=== PATIENT | male | born 1995 | race Caucasian/White ===

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

== ENCOUNTER 2017-03-07 17:39 | Emergency (ER) | payer BC ==
[~2017-03-07] VITALS: Ht 182.9 cm; Wt 66.2 kg
[~2017-03-07 17:39] MED LIST changes: +OXYC1TAB3 PO
[2017-03-07 17:58] VITALS: TEMP 38; Ht 182.9 cm; Wt 66.2 kg
[2017-03-07] MEDS ORDERED: ACETAMINOPHEN 500 MG TAB PO STA (19:01)
[2017-03-07] MEDS ORDERED: KETOROLAC TROMETHAMINE 30 MG/ML VIAL IV STA (19:01)
[2017-03-07 19:34] LABS: BASO % 0.2 %; BASO ABS # 0.01 K/uL (0-0.2); EOS % 0.2 %; EOS ABS # 0.01 K/uL (0-0.5); HEMATOCRIT 39.1 % (42-52); HEMOGLOBIN 13.8 g/dL (14.0-18.0); IG# 0.01 K/uL (0.00-0.02); LYMPH % 11.6 %; LYMPH ABS # 0.62 K/uL (1.2-3.4); MEAN CELL VOLUME 84.6 fL (80-100); MEAN CORPUSCULAR HEMOGLOBIN 29.9 pg (25-34); MEAN CORPUSCULAR HGB CONC 35.3 g/dl (32-36); MEAN PLATELET VOLUME 9.4 fL (7.4-10.4); MONO % 20.6 %; NEUT % 67.2 %; NEUT ABS # 3.59 K/uL (1.4-6.5); PLATELET COUNT 136 K/uL (130-400); RED CELL DISTRIBUTION WIDTH CV 13.3 % (11.5-14.5); RED CELL DISTRIBUTION WIDTH SD 40.7 fL (36.4-46.3); WHITE BLOOD COUNT 5.34 K/uL (4.8-10.8)
[2017-03-07 19:44] LABS: CALCIUM 9.1 mg/dl (8.5-10.1); POTASSIUM 3.5 mmol/L (3.5-5.1)
--- NOTE | 2017-03-07 19:47 | DIAGNOSTIC IMAGING REPORT ---
CHEST 2 VIEWS ROUTINE HISTORY: fever, cough COMPARISON: Chest 03/1716. FINDINGS: The lungs are clear. Cardiac silhouette is normal in size. No pleural effusions. No pneumothorax. IMPRESSION: No acute process. Electronically signed by: Chris Rojas M.D. 03/07/2017 7:46 PM Dictated Date/Time: 03/07/2017 7:44 PM
--- NOTE | 2017-03-07 19:53 | EMERGENCY ROOM VISIT NOTE ---
History Report prepared by Boyd: Christiano Leblanc Under the Supervision of: Froilan PadronO. First contact with patient: 18:42 Chief Complaint: FLU LIKE SX Stated Complaint: HIGH FEVER, NAUEA, CHEST PAIN, COUGH History of Present Illness The patient is a 21 year old male who presents to the Emergency Room with complaints of worsening flu symptoms for the past two days. The patient states that it started with a cough, and then last night into today he has been having body aches, chills, and fevers up to 102. He additionally states that he has some nausea, a dry cough, chest pain while coughing, and a sore throat. The patient denies any vomiting, shortness of breath, ear pain, runny nose, rashes, sores, difficulty urinating or defecating, diarrhea, and any abdominal pain. He states that he is unsure if he got the flu shot this year, and he states that he has not had any known sick contacts. He states that he does not smoke, and last year he had pneumonia. H states that he has been drinking fluids, and he states that he has not been eating very much. He has no other past medical history, and he denies any family history. The patient states that he has been taking Tylenol, though it has not been able to keep his fever down. Source of History: patient Onset: two days ago Position: other (global) Quality: other (flu like symptoms) Timing: worsening Associated Symptoms: + fevers, + chills, + sorethroat, + cough, + chest pain , + nausea, No SOB, No vomiting, No abdominal pain, No diarrhea, No rash Note: Associated symptoms: Body aches Review of Systems See HPI for pertinent positives & negatives. A total of 10 systems reviewed and were otherwise negative. Past Medical & Surgical Medical Problems: (1) Bronchitis Surgical Problems: (1) History of tonsillectomy Family History No significant family history Social History Smoking Status: Never Smoker Alcohol Use: occasionally Drug Use: none Marital Status: single Housing Status: lives with roommate Occupation Status: [employer] student Current/Historical Medications Scheduled PRN Sxozfnylxzwef-Fc-Pn W/ Apap (Tylenol Cold & Flu Severe), 2 TABS PO Q6 PRN for COLD SYMPTOMS Allergies Coded Allergies: Amoxicillin (Verified Allergy, Intermediate, HIVES-HAPPENED A BABY, ) Physical Exam Vital Signs Date Time Temp Pulse Resp B/P (MAP) Pulse Ox O2 Delivery O2 Flow Rate FiO2 03/07/17 20:51 79 18 107/62 98 03/07/17 19:34 95 16 119/71 97 Room Air 03/07/17 17:58 38.0 113 18 120/71 96 Room Air Physical Exam GENERAL: alert, mildly ill appearing, well nourished, no distress, non-toxic EYE EXAM: normal conjunctiva, PERRL and EOM's grossly intact OROPHARYNX: no exudate, no erythema, lips, buccal mucosa, and tongue normal and mucous membranes are moist NECK: supple, no nuchal rigidity, no adenopathy, non-tender LUNGS: Clear to auscultation. Normal chest wall mechanics HEART: no murmurs, S1 normal and S2 normal ABDOMEN: abdomen soft, non-tender, normo-active bowel sounds, no masses, no rebound or guarding. BACK: Back is symmetrical on inspection and there is no deformity, no midline tenderness, no CVA tenderness. SKIN: no rashes and no bruising UPPER EXTREMITIES: upper extremities are grossly normal. LOWER EXTREMITIES: No pitting edema. NEURO EXAM: Normal sensorium, cranial nerves II-XII grossly intact, normal speech, no gross weakness of arms, no gross weakness of legs. Gross sensation intact. Medical Decision & Procedures ER Provider Diagnostic Interpretation: Radiology results have been interpreted by the radiologist and reviewed by me. CHEST 2 VIEWS ROUTINE HISTORY: fever, cough COMPARISON: Chest 03/1716. FINDINGS: The lungs are clear. Cardiac silhouette is normal in size. No pleural effusions. No pneumothorax. IMPRESSION: No acute process. Electronically signed by: Chris Rojas M.D. 03/07/2017 7:46 PM Dictated Date/Time: 03/07/2017 7:44 PM Laboratory Results 03/07/17 19:10 Red Blood Count 4.62, Mean Corpuscular Volume 84.6, Mean Corpuscular Hemoglobin 29.9, Mean Corpuscular Hemoglobin Concent 35.3, Mean Platelet Volume 9.4, Neutrophils (%) (Auto) 67.2, Lymphocytes (%) (Auto) 11.6, Monocytes (%) (Auto) 20.6, Eosinophils (%) (Auto) 0.2, Basophils (%) (Auto) 0.2, Neutrophils # (Auto ) 3.59, Lymphocytes # (Auto) 0.62, Monocytes # (Auto) 1.10, Eosinophils # (Auto ) 0.01, Basophils # (Auto) 0.01 03/07/17 19:10 Test 03/07/17 19:10 White Blood Count 5.34 K/uL (4.8-10.8) Red Blood Count 4.62 M/uL (4.7-6.1) Hemoglobin 13.8 g/dL (14.0-18.0) Hematocrit 39.1 % (42-52) Mean Corpuscular Volume 84.6 fL (80-100) Mean Corpuscular Hemoglobin 29.9 pg (25-34) Mean Corpuscular Hemoglobin Concent 35.3 g/dl (32-36) Platelet Count 136 K/uL (130-400) Mean Platelet Volume 9.4 fL (7.4-10.4) Neutrophils (%) (Auto) 67.2 % Lymphocytes (%) (Auto) 11.6 % Monocytes (%) (Auto) 20.6 % Eosinophils (%) (Auto) 0.2 % Basophils (%) (Auto) 0.2 % Neutrophils # (Auto) 3.59 K/uL (1.4-6.5) Lymphocytes # (Auto) 0.62 K/uL (1.2-3.4) Monocytes # (Auto) 1.10 K/uL (0.11-0.59) Eosinophils # (Auto) 0.01 K/uL (0-0.5) Basophils # (Auto) 0.01 K/uL (0-0.2) RDW Standard Deviation 40.7 fL (36.4-46.3) RDW Coefficient of Variation 13.3 % (11.5-14.5) Immature Granulocyte % (Auto) 0.2 % Immature Granulocyte # (Auto) 0.01 K/uL (0.00-0.02) Anion Gap 8.0 mmol/L (3-11) Est Creatinine Clear Calc Drug Dose 111.3 ml/min Estimated GFR () 125.9 Estimated GFR (Non- 108.6 BUN/Creatinine Ratio 8.9 (10-20) Calcium Level 9.1 mg/dl (8.5-10.1) Influenza Type A Antigen Neg for Influ A (NEG) Influenza Type B Antigen Neg for Influ B (NEG) Laboratory results per my review. Medications Administered Medications (Trade) Dose Ordered Sig/Emi Route Start Time Stop Time Status Last Admin Dose Admin Ketorolac Tromethamine (Toradol Inj) 30 mg NOW STAT IV 03/07/17 19:01 03/07/17 19:02 DC 03/07/17 19:33 30 MG ECG Indication: chest pain Rate (beats per minute): 90 Rhythm: normal sinus Findings: no acute ischemic change, no ectopy, other (Normal intervals and normal axis. Isolated flat T wave in V2) Change: EKG: Patient's electrocardiogram per my interpretation. ED Course 1853: The patient was evaluated in room C4. A complete history and physical exam was performed. 1900: Toradol 30mg IV 2037: Upon reevaluation, the patient is feeling better. I discussed the findings and the treatment plan with the patient. He verbalizes agreement and understanding. He was discharged home. Medical Decision Differential diagnosis: Etiologies such as viral syndrome, otitis, pharyngitis, pneumonia, influenza, meningitis, urinary tract infection, sepsis, bacteremia, as well as others were entertained. Pt well appearing here, likely viral syndrome. Labs and imaging reassuring. Doubt bacteremia/sepsis, doubt occult pneumonia. Pt tolerating po, felt improved with tylenol/toradol here. Discussed hydration, otc meds, sx to watch/ return for, he verbalized understanding and was agreeable with plan. Doubt meningitis/encephalitis, doubt pericarditis/myocarditis. Doubt other focal ENT infection. Medication Reconcilliation Current Medication List: was personally reviewed by me Blood Pressure Screening Patient's blood pressure: Normal blood pressure Impression Primary Impression: Influenza-like symptoms Scribe Attestation The scribe's documentation has been prepared under my direction and personally reviewed by me in its entirety. I confirm that the note above accurately reflects all work, treatment, procedures, and medical decision making performed by me. Departure Information Dispostion Home / Self-Care Referrals No Doctor, Assigned (PCP) Forms HOME CARE DOCUMENTATION FORM, IMPORTANT VISIT INFORMATION, School Instructions Patient Instructions ED Fever Control, ED Flu, My [facility] Additional Instructions Please rest and avoid any strenuous activity until you're feeling better. Please use Tylenol and ibuprofen as needed for fevers and pain. Do not take ibuprofen and an empty stomach. Please drink plenty of liquids to stay well- hydrated, predominantly water. You may not have a normal appetite for several days, that is to be expected when you are sick. You may eat as tolerated. If you have any worsening pain, increased headache, dizziness, vomiting, dehydration, increased cough or trouble breathing, or coughing up blood, develop rashes or sores, or you have any other new concerns, please return the emergency room.
[2017-03-07 20:20] LABS: INFLUENZA B ANTIGEN Neg for Influ B (NEG)
[2017-03-07 20:51] VITALS: BP 107/62; PULSE 79; O2SAT 98
== END 2017-03-07 20:52 | disposition home or self-care (01) ==
LOC: C.EDB 17:41 → C.EDC 20:52
DX: R05 Cough (principal); R50.9 Fever, unspecified; R11.0 Nausea; R07.9 Chest pain, unspecified; J02.9 Acute pharyngitis, unspecified; Z90.89 Acquired absence of other organs